=== PATIENT | female | born 1990 | race Caucasian/White ===

== ENCOUNTER 2018-12-15 16:04 | Outpatient (CLI) | payer MEDICAID, SELFPAY ==
--- NOTE | 2018-12-15 15:45 | DI.RAD_ITS ---
SYMPTOM/DIAGNOSIS: SENSATION, INABILITY TO FILL LUNGS, SOB, R06.02 PA AND LATERAL CHEST: There are no prior comparison exams. The cardiac and mediastinal contours have a normal appearance. The lungs are normally inflated and appear clear. Scoliosis is noted in the thoracolumbar spine. IMPRESSION: Scoliosis, otherwise negative.
== END 2018-12-15 16:24 ==
PROVIDERS: PCP Nurse Practitioner; Visit Provider Nurse Practitioner Adult Health
DX: R06.02 Shortness of breath (principal)
CPT/HCPCS: 71046

== ENCOUNTER 2019-01-13 11:07 | Outpatient (REF) | payer MEDICAID, SELFPAY ==
--- NOTE | 2019-01-13 09:20 | PAPFT_PTH ---
PATIENT: Marly Viveros LOC: [facility] U#:[id number] AGE/SX: 28/F ROOM: RE01/13/[address]: Anita Ghotra APRN : 1990 BED: DIS: 01/13/2019 SPEC #: [id number] RECD: 01/13/19 13:03 STATUS: LASHA MELO #: [id number] [place]: 01/13/19 09:[address]: Anita Ghotra DEPT: [facility] Cytology RECD BY: Janice Aparicio Tissues: 1 - CX/ENDOCX FOR PAP SMEARS Procedures: PAP THIN PREP/UVM Screening Comments: [id number] (CHLAMYDIA/GC)
[2019-01-14 13:59] LABS: Chlamydia Result Negative; GC Result Negative; Specimen Description SEE COMMENTS
== END 2019-01-13 11:27 ==
LOC: LBN 11:07
PROVIDERS: PCP Nurse Practitioner; Visit Provider Nurse Practitioner
DX: Z11.3 Encounter for screening for infections with a predominantly sexual mode of transmission (principal); Z12.4 Encounter for screening for malignant neoplasm of cervix
CPT/HCPCS: 87491; 87591; 88142

== ENCOUNTER 2020-05-06 04:14 | Outpatient (CLI) | payer MEDICAID, SELFPAY ==
--- NOTE | 2020-05-06 07:00 | DI.RAD_ITS ---
EXAM: XR KNEE RT 3V AP,LAT,CALLY CLINICAL HISTORY: r/o fx, patellar tenderness, s/p fall,M25.561, RT KNEE PAIN TECHNIQUE: COMPARISON: No exams were available for comparison FINDINGS: Three views were obtained. There is no evidence of a fracture or dislocation. No significant knee j oint effusion seen on the lateral view. IMPRESSION: RADIATION DOSE DELIVERED: Total DLP
== END 2020-05-06 04:34 ==
PROVIDERS: PCP Nurse Practitioner; Visit Provider Nurse Practitioner Family
DX: M25.561 Pain in right knee (principal)
CPT/HCPCS: 73562

== ENCOUNTER 2020-05-10 13:54 | Outpatient (CLI) | payer MEDICAID, SELFPAY ==
--- NOTE | 2020-05-10 10:30 | DI.RAD_ITS ---
EXAM: XR KNEE RT 1V CLINICAL HISTORY: RIGHT KNEE PAIN. TECHNIQUE: 2D digital imaging was performed. COMPARISON: CR XR KNEE RT 3V AP,LAT,CALLY from 05/06/2020 FINDINGS: BONES: No acute fracture is present. No bony destructive lesion is seen. JOINTS: The knee is normally aligned. No joint effusion is seen. SOFT TISSUE: Normal. IMPRESSION: Unremarkable radiographs of the right knee. DATA REPOSITORY: RADIATION DOSE DELIVERED:
== END 2020-05-10 14:14 ==
PROVIDERS: PCP Nurse Practitioner; Visit Provider Student in an Organized Health Care Education/Training Program
DX: M25.561 Pain in right knee (principal)
CPT/HCPCS: 73560

== ENCOUNTER 2021-04-05 04:14 | Outpatient (CLI) | payer MEDICAID, SELFPAY ==
[2021-04-05 09:13] LABS: HCT 36.2 % (36.0-46.0); HGB 11.1 g/dL (11.2-15.7); MCH 26.2 pg (27.0-33.0); MCHC 30.7 % (32.0-36.0); MCV 85.6 fL (80-95); MPV 9.7 fL (8.0-11.0); Platelet Count 365 10^3/uL (130-400); RBC 4.23 10^6/uL (3.93-5.22); RDW-SD 43.8 fL; WBC 5.97 10^3/uL (4.4-10.8)
[2021-04-05 11:29] LABS: ALT 26 U/L (14-59); AST 12 U/L (15-37); Albumin 3.6 g/dL (3.4-5.0); Alkaline Phosphatase 67 U/L (46-116); Anion Gap 8.7 mmol/L (3-11); BUN 18 mg/dL (7-18); Bilirubin, Total 0.2 mg/dL (0.2-1.0); CO2 27.3 mmol/L (21.0-32.0); Calcium 8.8 mg/dL (8.5-10.1); Chloride 106 mmol/L (98-107); Glucose 78 mg/dL (74-106); Potassium 4.2 mmol/L (3.5-5.1); Sodium 142 mmol/L (136-145); TSH (W/Ref FT4) 1.01 uIU/mL (0.36-3.74); Vitamin B12 241 pg/mL (193-986)
== END 2021-04-05 04:15 | disposition home or self-care (01) ==
LOC: LBO 04:14
PROVIDERS: PCP Nurse Practitioner; Visit Provider Nurse Practitioner
DX: I10 Essential (primary) hypertension (principal); R41.3 Other amnesia; F32.9 Major depressive disorder, single episode, unspecified; R41.840 Attention and concentration deficit
CPT/HCPCS: 36415; 80053; 85027; 82607; 84443

== ENCOUNTER 2021-10-03 12:50 | Outpatient (CLI) | payer MEDICAID, SELFPAY ==
--- NOTE | 2021-10-03 12:45 | RT.EKG_ITS ---
APPROVED REPORT Exam: Resting ECG Reason for Exam: Medication monitoring Patient Location: O HR:101 bpm ECG Measurements Heart Rate 101 AXIS ID 137 P 44 QRSd 61 QRS 23 QT 336 T 28 QTc 437 Conclusion Sinus tachycardia...rate> 99
== END 2021-10-03 12:51 | disposition home or self-care (01) ==
LOC: DI.KIM 12:52
PROVIDERS: PCP Nurse Practitioner; Visit Provider Nurse Practitioner
DX: Z51.81 Encounter for therapeutic drug level monitoring (principal); Z79.899 Other long term (current) drug therapy; R00.0 Tachycardia, unspecified; R94.31 Abnormal electrocardiogram [ECG] [EKG]
CPT/HCPCS: 93010

== ENCOUNTER 2022-04-06 13:06 | Outpatient (REF) | payer MEDICAID, SELFPAY ==
--- NOTE | 2022-04-06 10:00 | PAPFT_PTH ---
PATIENT: Marly Viveros LOC: [facility] U#:[id number] AGE/SX: 31/F ROOM: RE04/06/[address]: Donya Flores MD : 1990 BED: DIS: 04/06/2022 SPEC #: [id number] RECD: 04/06/22 14:07 STATUS: LASHA REQ #: [id number] [place]: 04/06/22 10:[address]: Donya Flores DEPT: [facility] Cytology RECD BY: Radha Holbrook ENTERED: 04/06/22 14:08 SP TYPE: PAPFT OTHR DR: Anita Ghotra APRN Tissues: 1 - CX/ENDOCX FOR PAP SMEARS Procedures: PAP THIN PREP/UVM Screening Comments: [id number]
== END 2022-04-06 13:07 | disposition home or self-care (01) ==
LOC: LBN 13:06
PROVIDERS: PCP Nurse Practitioner; Visit Provider Obstetrics & Gynecology
DX: Z12.4 Encounter for screening for malignant neoplasm of cervix (principal)
CPT/HCPCS: 88142

== ENCOUNTER 2023-03-20 04:03 | Outpatient (CLI) | payer OTHER, SELFPAY ==
[2023-03-20 11:57] LABS: Abs Immature Grans 0.06 10^3/uL (0.0-0.06); Absolute Eosinophil Count 0.13 10^3/uL (0.0-0.7); Absolute Lymphocyte Count 2.22 10^3/uL (1.2-3.4); Absolute Monocyte Count 0.57 10^3/uL (0.1-0.8); Absolute Neutrophil Count 8.14 10^3/uL (1.2-6.7); Basophils % 0.4; Eosinophils % 1.2; HCT 36.4 % (36.0-46.0); HGB 11.7 g/dL (11.2-15.7); Immature Grans % 0.5; Lymphocytes % 19.9; MCH 27.1 pg (27.0-33.0); MCHC 32.1 % (32.0-36.0); MCV 85 fL (80-95); MPV 9.7 fL (8.0-11.0); Monocytes % 5.1; Neutrophils % 72.9; Platelet Count 357 10^3/uL (130-400); RBC 4.31 10^6/uL (3.93-5.22); RDW 13.8 % (11.7-14.6); RDW-SD 42.8 fL; WBC 11.17 10^3/uL (4.4-10.8)
[2023-03-20 12:00] LABS: Absolute Basophil Count 0.04 10^3/uL (0.0-0.2)
[2023-03-21 11:25] LABS: HIV-1/2 Ag & Ab Screen Negative (Negative)
[2023-03-21 11:32] LABS: Hepatitis C Ab w Rflx HCV PCR Negative (Negative)
[2023-03-21 11:46] LABS: Varicella IgG Antibody Positive (See Note)
[2023-03-21 11:51] LABS: Rubella IgG Ab (UVM) Positive (See Note)
[2023-03-21 12:02] LABS: Hepatitis B Surface Ag Negative (Negative)
[2023-03-22 16:01] LABS: Syphilis IgG w/Reflex Nonreactive (Nonreactive)
[2023-03-25 14:43] LABS: Specimen WB Whole Blood
[2023-03-30 00:26] LABS: Result Summary NEGATIVE; Specimen WB Whole Blood
== END 2023-03-20 04:04 | disposition home or self-care (01) ==
LOC: LBO 04:03
PROVIDERS: PCP Nurse Practitioner; Visit Provider Advanced Practice Midwife
DX: Z34.91 Encounter for supervision of normal pregnancy, unspecified, first trimester (principal); Z3A.11 11 weeks gestation of pregnancy; Z36.89 Encounter for other specified antenatal screening
CPT/HCPCS: 36415; 81220; 81222; 81329; 86787; 86803; 86850; 86900; 86901; 87340; 87389; 85025; 86762; 86780

== ENCOUNTER 2023-03-20 11:41 | Outpatient (REF) | payer OTHER, SELFPAY ==
[2023-03-20 12:39] LABS: *AMPHETAMINES SCREEN URINE Negative (Negative); *BARBITURATES SCREEN URINE Negative (Negative); *BENZODIAZEPINES SCREEN URINE Negative (Negative); Cannabinoids THC Negative (Negative); Cocaine Screen,Urine Negative (Negative); METHADONE URINE SCREEN Negative (Negative); OPIATES URINE SCREEN Negative (Negative)
[2023-03-20 12:46] LABS: Tricyclic Antidepressants Negative (Negative)
[2023-03-21 13:18] LABS: Chlamydia Result Negative (Negative); GC Result Negative (Negative)
[2023-03-26 10:44] LABS: Buprenorphine Negative ng/mL (Cutoff: 5.0); Norbuprenorphine Negative ng/mL (Cutoff: 2.5)
== END 2023-03-20 11:42 | disposition home or self-care (01) ==
LOC: LBN 11:41
PROVIDERS: PCP Nurse Practitioner; Visit Provider Advanced Practice Midwife
DX: Z34.91 Encounter for supervision of normal pregnancy, unspecified, first trimester (principal); Z3A.11 11 weeks gestation of pregnancy; Z11.3 Encounter for screening for infections with a predominantly sexual mode of transmission
CPT/HCPCS: 80307; 80348; 87491; 87591; 87086

== ENCOUNTER 2023-04-22 08:36 | Outpatient (CLI) | payer OTHER, SELFPAY ==
--- NOTE | 2023-04-22 08:30 | RT.EKG_ITS ---
APPROVED REPORT Exam: Resting ECG Reason for Exam: on [facility] Patient Location: O HR:94 bpm ECG Measurements Heart Rate 94 AXIS [place] 144 P 30 QRSd 79 QRS 13 QT 358 T 31 QTc 448 Conclusion Sinus rhythm...normal P axis, V-rate 50- 99 Low voltage, precordial leads...precordial leads <1.0mV Baseline wander in lead(s) II,III,aVF Otherwise normal ECG
== END 2023-04-22 08:37 | disposition home or self-care (01) ==
LOC: DI.KIM 08:38
PROVIDERS: PCP Nurse Practitioner; Visit Provider Nurse Practitioner
DX: Z51.81 Encounter for therapeutic drug level monitoring (principal)
CPT/HCPCS: 93010

== ENCOUNTER 2023-06-18 10:37 | Outpatient (REF) | payer BC, SELFPAY | END 2023-06-18 10:38 | disposition home or self-care (01) | LOC: LBN 10:37 | PROVIDERS: PCP Nurse Practitioner; Visit Provider Advanced Practice Midwife | DX: N89.8 Other specified noninflammatory disorders of vagina (principal); O26.892 Other specified pregnancy related conditions, second trimester | CPT/HCPCS: 87480; 87510; 87660 ==

== ENCOUNTER 2023-07-16 02:35 | Outpatient (CLI) | payer BC, SELFPAY ==
[2023-07-16 10:37] LABS: HCT 31.9 % (36.0-46.0); HGB 10.2 g/dL (11.2-15.7); MCV 84 fL (80-95); MPV 9.6 fL (8.0-11.0); Platelet Count 364 10^3/uL (130-400); RBC 3.78 10^6/uL (3.93-5.22); RDW 13.2 % (11.7-14.6); RDW-SD 40.9 fL; WBC 11.78 10^3/uL (4.4-10.8)
[2023-07-16 11:11] LABS: Glucose,1 Hr (Glucola) 107 mg/dL (80-140)
== END 2023-07-16 02:36 | disposition home or self-care (01) ==
LOC: LBO 02:35
PROVIDERS: Advanced Practice Midwife; PCP Nurse Practitioner; Visit Provider Advanced Practice Midwife
DX: Z34.93 Encounter for supervision of normal pregnancy, unspecified, third trimester (principal); Z3A.28 28 weeks gestation of pregnancy
CPT/HCPCS: 36415; 82950; 85027

== ENCOUNTER 2023-08-16 02:26 | Outpatient (CLI) | payer BC, SELFPAY ==
[2023-08-16 12:52] LABS: HCT 32.2 % (36.0-46.0); HGB 10.1 g/dL (11.2-15.7); MCH 26.4 pg (27.0-33.0); MCHC 31.4 % (32.0-36.0); MCV 84 fL (80-95); MPV 9.7 fL (8.0-11.0); Platelet Count 358 10^3/uL (130-400); RBC 3.83 10^6/uL (3.93-5.22); RDW 14.5 % (11.7-14.6); RDW-SD 43.8 fL; WBC 11.42 10^3/uL (4.4-10.8)
== END 2023-08-16 02:27 | disposition home or self-care (01) ==
LOC: LBO 02:26
PROVIDERS: PCP Nurse Practitioner; Visit Provider Advanced Practice Midwife
DX: Z34.93 Encounter for supervision of normal pregnancy, unspecified, third trimester (principal)
CPT/HCPCS: 36415; 85027

== ENCOUNTER 2023-09-11 16:01 | Outpatient (REF) | payer BC, SELFPAY | END 2023-09-11 16:02 | disposition home or self-care (01) | LOC: LBN 16:01 | PROVIDERS: PCP Nurse Practitioner; Visit Provider Advanced Practice Midwife | DX: Z34.93 Encounter for supervision of normal pregnancy, unspecified, third trimester (principal); Z36.85 Encounter for antenatal screening for Streptococcus B; Z3A.36 36 weeks gestation of pregnancy | CPT/HCPCS: 87081 ==

== ENCOUNTER 2023-09-30 10:56 | Inpatient (IN) | payer BC, SELFPAY ==
[2023-09-30] VITALS (11 sets, daily range): BP systolic 104–117; BP diastolic 62–70; PULSE 76–96; RESP 16; TEMP 36.8–37.1
[2023-09-30] MEDS: Oxytocin 10 UNITS/ML VIAL IM (11:25)
--- NOTE | 2023-09-30 11:59 | W.PM.OBHPL1 ---
Date of service: 09/30/23 Time of Service: 11:59 Assessment and Plan Assessment and plan (1) Normal labor: Status: Acute Assessment and plan: 1. Admit and prepare for imminent , low risk for Shoulder dystocia, pre-eclampsia or PPH 2. Plan to draw admission labs immediately PP 3. Expect NVD, will give pitocin 10 units IM after delivery of baby for active management of second stage OB-HPI Labor/Delivery History of Present Illness Reason for Visit: Labor Chief Complaint: Uterine Contractions. JOSSY Calculator Estimated Delivery Date Method WG Current Estimate 10/07/23 Ultrasound #1 Other Estimates 10/01/23 LMP (Certain) Delivery Date-Baby A 09/30/23 39w 0d History of Present Expected Delivery Route/Plan - CNM FOB/ - Akash Viveros (1st child) BG Hopes to labor in the tub GBS negative Specific Issues/Plan 1. Hx symphysis separation at end of 2nd preg, has met w/PT recently- symptoms improved. 2. Depression/anxiety & ADHD, takes Wellbutrin & Vyvanse, therapist thru [facility]-- yearly EKG with PCP 3. SMA neg, CF neg, declines cfDNA screen 4. Anemia - symptomatic , Hgb 10.2, started iron tablet daily @ 30 wks Assessment: History Reviewed & Current Review of Systems All systems reviewed & are unremarkable except as noted in HPI and below Genitourinary Comments: urge to push on arrival, bulging amniotic membranes Musculoskeletal Comments: regular uterine contractions that began at 0400 today [facility] All Active Problems (Updated 09/30/23 @ 12:07 by Mary Oliveira CNM) Normal labor (Acute) Anemia affecting (Acute) Vaginal discharge during (Acute) (Acute) Symphysis pubis disruption (Acute) History of hyperemesis gravidarum (Acute) Attention deficit hyperactivity disorder (ADHD) (Acute) Anemia (Chronic) Memory deficit (Acute) Concentration deficit (Acute) Urinary incontinence (Acute) TMJ (temporomandibular joint disorder) (Acute) Patellar tendinitis of right knee (Acute ~01/2020) Scoliosis (Chronic) Depression (Chronic) Anxiety (Chronic) Medical History (Updated 09/30/23 @ 12:07 by Mary Oliveira CNM) First trimester Surgical History Dilation and curettage Family History (Updated 04/06/22 @ 09:11 by Katie Akhtar RN) Paternal Grandfather Alcohol abuse Maternal Grandfather Alcohol abuse Sister Anxiety Depression Christoph-Danlos, hypermobile type Paternal Grandmother Cancer Maternal Grandmother Cervical cancer Cancer ovarian Mother Depression Hypertension Maternal Aunt Depression Christoph-Danlos, hypermobile type Maternal Cousin Depression Christoph-Danlos, hypermobile type Other Mental disorder Social History (Updated 01/18/21 @ 09:30 by Yuliya Glynn RN) Smoking/Tobacco Use Status: Current-Occasional (Juul, Former use of mini cigars occasionally) Tobacco Type: e-cigarettes Tobacco: How many years used: 2 Quit status: not considering quitting Second Hand Exposure: No Smoking risk assessment performed?: Yes Alcohol Intake: current Alcohol Intake frequency: a few times a month Drug use: Never Substance use type: does not use Adopted: No Caregiver/Support person: No Foster care: No Household members: significant other and children Housing: apartment Number of Children: 2 number of grandchildren: 0 Communication Needs: Corrective Lenses Education Level: vocational Do you need help understanding health information?: Never 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, [employer]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 Pets and animals: Yes Pets and animals: other Details: Mouse Sexually active: Yes Do you think of yourself as: straight/heterosexual Current gender identity: female What is your relationship status?: living with partner How often do you talk on the phone with friends or family?: once per week How often do you get together with friends or relatives?: twice per week Do you belong to any clubs or organized social groups?: no Panel score (0-1 are the most socially isolated patients): 2 What type of physical activity do you participate in: regular exercise and other Details: very active with her 2 children, Stone 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 Duration: 45-60 minutes/day Frequency: 1-2 times per week Colette/Mandaeism: Adventism Special colette needs: No Seatbelt use: always Helmet use: Yes Helmet use: always Drive intox or ride w/intox long haul truck driver: No Water heater temp set <120 deg: Yes Working smoke detector in home: Yes Fire extinguisher in home: Yes Carbon monox detector in home: Yes Do you feel safe at home: Yes Do you feel safe in your relationship?: Yes Victim of physical abuse: No Victim of emotional abuse: No Victim of sexual abuse: No History History 5 Para 2 Hx # Term Pregnancies 2 Multiple births 0 Hx # Pregnancies 0 Ectopic pregnancies 0 AB induced 0 Hx Number of Living Children 2 AB spontaneous 2 Past Pregnancies Del. Date GA/Weeks # Preg Succ Route Wgt Sex Labor Lgth Anesthesia Location Prov Complic 05/10/11 13 No Female 05/15/12 6 No 05/27/13 39 No Yes vaginal 7 lb 1 oz Female 9 hrs [facility] CNM's 11/19/15 39 No Yes vaginal 7 lb 8 oz Male 3 hrs CNM's at Delivery Date: 05/10/11 Last Updated by: Malka Duran D&C for 11-12 wk demise, trisomy 18 Delivery Date: 05/15/12 Last Updated by: Malka Duran SAB Delivery Date: 05/27/13 Last Updated by: Malka Duran Nml but not a great experience, felt unheard, [facility] Delivery Date: 11/19/15 Last Updated by: Malka Duran Very good experience, [facility] Allergies and Home Medications Allergies Allergy/AdvReac Type Severity Reaction Status Date / Time Sulfa (Sulfonamide Allergy Mild Hives Verified 09/30/23 12:07 Antibiotics) acetaminophen [From Vicodin] AdvReac Mild vomiting Verified 09/30/23 12:07 hydrocodone bitartrate AdvReac Mild vomiting Verified 09/30/23 12:07 [From Vicodin] Home Medications Medication Instructions Recorded Confirmed Type cholecalciferol (vitamin D3) 25 1 tab PO DAILY 10/29/17 09/25/23 History mcg (1,000 unit) tablet vitamin b12 PO 07/11/21 09/25/23 History loratadine 10 mg tablet (Claritin) 10 mg PO DAILY 10/03/21 09/25/23 History vitamin #56-iron 35 mg 1 cap PO DAILY 06/14/22 09/25/23 History and 5 mg-folic acid 1 mg-dha capsule bupropion HCl 300 mg 24 hr tablet, 300 mg PO QAM #90 tabs 11/27/22 09/25/23 Rx extended release (Wellbutrin XL) ondansetron HCl 4 mg tablet 4 mg PO Q6H #30 tabs 06/18/23 09/25/23 Rx famotidine 20 mg tablet (Pepcid) 20 mg PO BID 07/16/23 09/25/23 History lisdexamfetamine 40 mg capsule 40 mg PO DAILY #28 caps 07/24/23 09/25/23 Rx lisdexamfetamine 40 mg capsule 40 mg PO DAILY #28 caps 07/24/23 09/25/23 Rx lisdexamfetamine 40 mg capsule 40 mg PO DAILY #28 caps 07/24/23 09/25/23 Rx (Vyvanse) ferrous sulfate 325 mg (65 mg 325 mg PO DAILY 07/31/23 09/25/23 History iron) tablet Exam Physical Exam Vital signs: Pulse BP 76 105/67 09/30/23 11:44 09/30/23 11:44 Vital Signs Reviewed: Yes Constitutional Constitutional: mild distress Detailed Labor and Delivery Exam Dilation: 10 Effacement (%): 100 station: +2 Position: ALYSA Kilpatrick Score: Cervical Points Exam 0 1 2 3 Dilation Closed 1-2cm 3-4 cm 5-6cm Effacement 0-30% 40-50% 60-70% 80% Consistency Firm Medium Soft Station -3 -2 -1,0 +1,+2 Position Posterior Mid Anterior Contraction Frequency(min): 2 Contraction Duration(sec): 60 Contraction Intensity: Strong Comments: bulging membranes on arrival Fetus A Heart Rate Baseline: 120 Monitor Accelerations: Absent Monitor Decelerations: Variable (X1) Variability: Minimal (1-5 BPM) (only 10 minutes of tracing before delivery due to second stage on arrival) Presentation: Cephalic Est. Weight: 7 lb HEENT Exam HEENT Exam: Normal (atraumatic, face symmetrical, wears glasses) Neck Exam Neck Exam: Normal (visual exam) Chest/Brest/Axilla Exam Chest Exam: Normal (regular HR ) Breast Exam Breast Exam: Not Done Respiratory Exam Respiratory Exam: Normal Cardiovascular Exam Cardiovascular Exam: Normal Abdominal Exam Abdominal Exam: Normal (gravid, size equals dates) Rectal Exam Rectal Exam: Not Done Exam Exam: Normal (for second stage labor) Extremities Exam Extremities Exam: Normal Back/Spine/Pelvis Exam Back Exam: Not Done Pelvis Adequate: Yes Skin Exam Skin Exam: Normal Neurological Exam Neurological Exam: Normal Psychiatric Exam Psychiatric Exam: Normal Results Results Group Beta Strep: Negative Blood Type: A+ Rubella Status: Immune Varicella Immunity: Immune Risk Assessment Risk for Shoulder Dystocia Historical/Initial OB: NEGATIVE FOR: Pelvic Abnormality, Pre- BMI>30, Previous Shoulder Dystocia or Previous Macrosomia Delivery Plan @ 40 wks: NVD Risk for Pre-Eclampsia Date Initiated/Initials: not indicated. JK Yes, if one or more: NEGATIVE FOR: Hx Pre-E/Gest HTN, Chronic HTN, Multiple Gestation, Pre-gestational DM, Renal Disease, Systemic Lupus or APA Syndrome Yes, if 2 or more: NEGATIVE FOR: Nulliparity, Age>= 35 yrs, >10yr btwn pregnancies, BMI>30, ethinicty, Mother/Sister w/ Pre-E or Previous IUGR Risk for Post- Hemorrhage Initial: NEGATIVE FOR: Multiple Gestation, Previous PPH, Known Clotting Deficiency, Grand Multiparity or Anticoagulation Counseled re: Active Management: Yes Date/Initials: 09/30/23 Risks Reviewed Risks Reviewed Upon Admission: Yes
[2023-09-30 12:05] LABS: HCT 35.5 % (36.0-46.0); HGB 11.3 g/dL (11.2-15.7); MCH 26.6 pg (27.0-33.0); MCHC 31.8 % (32.0-36.0); MCV 84 fL (80-95); MPV 10.2 fL (8.0-11.0); Platelet Count 282 10^3/uL (130-400); RBC 4.25 10^6/uL (3.93-5.22); RDW 16.2 % (11.7-14.6); RDW-SD 49.5 fL
--- NOTE | 2023-09-30 12:09 | OBVDS_ITS ---
Date of service: 09/30/23 Time of Service: 12:09 OB Labor/ Delivery Information Baby A Delivery Delivery Method: Spontaneaous Presentation: Cephalic Cephalic Position: Vertex Vertex Position: Left Occipital Anterior Cord Description-Baby A: 3 Vessels and Clamped/Cut (after 4 minutes of delayed cord clamping) Amniotic Fluid: Meconium (thin meconium, born en-caul) Estimated Blood Loss: 150 Delivery Outcome: Liveborn Infant Complications: right arm below elbow absent, not formed Infant Transferred: Remains with Mother Note: Josh arrived at approximately 1110. She had begun leticia at 0400 and on arrival was experiencing rectal pressure. Denied LOF or bleeding. FHR 120's with contractions every 2 minutes and strong to palpation. VE 10/100/+2, bulging membranes noted after first push, appeared to have meconium staining. As FHR was within normal ranges and baby was about to deliver I chose to await to notify pediatric provider of meconium. A live female was delivered ALYSA over intact perineum, encaul, at 1118. Baby was brought to mother's abdomen for skin to skin and drying. I showed parents after a couple of minutes that it appears that the right arm, below elbow was absent and no hand had developed on that arm. Their response was appropriate with concern but happy that baby is otherwise doing well. Cord ceased pulsing at 4 minutes of life and was double clamped and cut by FOB. Cord bloods obtained. scores 9 and 9. Nicole agreed to 10 units Pitocin IM for active management of second stage. Placenta delivered at 1130, with maternal pushing effort, intact. Fundus firmed to U-1 with massage. QBL 150cc. Spnge and instrument count correct. I will send placenta to pathology and Josh want cytogenetic testing done. Pediatric provider will attend baby in the next couple of hours as she is doing well. Positive bonding noted. Expect normal PP course. Nicole plans to breast feed her baby. Providers Nurse Endless Track Vehicle Mechanic: Mary Oliveira Nurse: Soto Tejeda Labor/Delivery Information Number of Babies in Womb: 1 Group Beta Strep: Negative Rubella Status: Immune Blood Type: A+ Varicella Immunity: Immune Shoulder Dystocia: No Stages of Labor Onset of Labor Date: 09/30/23 Onset of Labor Time: 04:00 Complete Dilatation Date: 09/30/23 Complete Dilatation Time: 11:10 Labor - Stage 1 Duration: 7 hours and 10 minutes ROM Baby A: 09/30/23 ROM Baby A: 11:18 Infant Delivery Date-Baby A: 09/30/23 Delivery Time-Baby A: 11:18 Labor Stage 2 Duration: 8 minutes Placenta Delivery Date-Baby A: 09/30/23 Placenta Delivery Time-Baby A: 11:30 Labor-Stage 3 Duration: 12 minutes Total Length of Labor-Baby A: 7 hours and 18 minutes Placenta Status: Delivered Baby A Infant Gender: Female Gestational Status: Early Term (37-38.6 wks) Score-1 Minute Interval(Baby A) Heart Rate-1 minute: 100 BPM or Greater Respiratory Effort- 1 minute: Spontaneous/Strong Cry Muscle Tone-1 minute: Active Movement Reflex Response-1 minute: Prompt Response Color-1 minute: Bluish Hands or Feet Total Score-1 minute: 9 Score-5 Minute Interval(Baby A) Heart Rate- 5 minute: 100 BPM or Greater Respiratory Effort-5 minute: Spontaneous/Strong Cry Muscle Tone-5 minute: Active Movement Reflex Response-5 minute: Prompt Response Color-5 minute: Bluish Hands or Feet Total Score- 5 minute: 9
[2023-09-30] MEDS: Ibuprofen 600 MG TAB PO ×2 (16:17→21:56)
[2023-09-30] MEDS: Acetaminophen 325 MG TAB 650 MG PO ×2 (16:17→19:29)
[2023-10-01] MEDS: Ibuprofen 600 MG TAB PO ×2 (05:22→12:59)
[2023-10-01] MEDS: Acetaminophen 325 MG TAB 650 MG PO ×2 (05:22→12:58)
[2023-10-01 08:00] VITALS: BP 99/69; PULSE 86; RESP 12; TEMP 36.9
[2023-10-01] MEDS: buPROPion-XL 150 MG TABCR 300 MG PO (08:15)
[2023-10-01] MEDS: Docusate Sodium 100 MG CAP PO (08:15)
--- NOTE | 2023-10-01 09:20 | OBPPV_ITS ---
Date of service: 10/01/23 Time of Service: 09:20 Assessment and Plan Assessment and plan (1) care following vaginal delivery: Status: Acute Assessment and plan: 1. Normal PP course to date. Denies questions or concerns. KIM (2) Lactating mother: Status: Acute Assessment and plan: 1. Breast feeding is well established and patient has a good knowledge of breast feeding and self help measures. Will work with LC today for latch on right side that is slightly tender. 2. Will follow up with pediatrics as scheduled. KIM Subjective Subjective Interval history: Nicole is doing well. Meeting her own ADL's. Breast feeding is going well but she does have some difficulty with latch on her right side. Will work with LC today. 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 Positive family bonding noted. Nicole and Akash feel good about the plan to manage Meagan Kessler's right lower arm reduction. KIM baby status: Doing well, Nursing well and Rooming in [place] feeding status: Exclusively breast feeding Exam Physical Exam Vital signs: Temp Pulse Resp BP 98.4 F 86 12 99/69 L 10/01/23 08:00 10/01/23 08:00 10/01/23 08:00 10/01/23 08:00 Constitutional Constitutional: no acute distress, average body habitus and cooperative HEENT Exam HEENT Exam: Normal Neck Exam Neck Exam: Normal (normal visual inspection) Respiratory Exam Respiratory Exam: Normal Cardiovascular Exam Cardiovascular Exam: Normal Abdominal Exam Abdomen: Other (normal exam) Fundal Exam Fundus: Below Umbilicus and Firm Comment: small lochia noted. Rectal Exam Rectal Exam: Not Done Exam Perineum: Intact and Normal Extremities Exam Extremity Exam: Normal (denies calf tenderness) and Full ROM Back/Spine/Pelvis Exam Back Exam: Normal Skin Exam Skin Exam: Normal Neurological Exam Neurological Exam: Normal Psychiatric Exam Psychiatric Exam: Normal Results Hemoglobin/Hematocrit: Hgb 11.3 g/dL (11.2-15.7) 09/30/23 11:55 Hct 35.5 % (36.0-46.0) L 09/30/23 11:55 Abnormal Lab Findings: Abnormal Labs 09/30/23 11:55 WBC 17.30 H Hct 35.5 L MCH 26.6 L MCHC 31.8 L RDW 16.2 H
--- NOTE | 2023-10-01 09:29 | DSE_ITS ---
Date of service: 10/01/23 Time of Service: 09:32 DS: Diagnosis Discharge Diagnosis (1) care following vaginal delivery: Status: Acute Asessment and Plan: 1. Normal PP course, performing own ADL's. Denies pain or concerns. 2. Plans NFP, she has a counselor that is well versed in this method and is aware of the challenges of this method while breast feeding. 3. Will RTO in 2 and 6 weeks PP. KH (2) Lactating mother: Status: Acute Asessment and Plan: 1. Breast feeding is well established and Nicole has a good knowledge of breast feeding and self help measures. 2. Will follow up with pediatrics as scheduled and call CNM as needed. Discharge Plan Disposition Patient Disposition: Home Condition: Good Discharge Details Reason For Visit: Labor Admit Date/Time: 09/30/23 10:56 Admit Provider: Mary Oliveira Attending Provider: Mary Oliveira Primary Care Provider: Anita Ghotra Hospital Course Hospital Course: Nicole arrived on 09/30/23 at approximately 11 am in active labor, 10cm and with urge to push after starting her labor at 4 am on 09/30/23. She had NVD over intact perineum and delivered a live female. It was noted at time of delivery that the lower portion of the baby's right arm was missing. They are dealing well wtih this deformity and have a good plan for follow up with their pediatric team and [facility]ology, genetics and ortho. Nicole is doing well PP and breast feeding is well established. 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 They plan NFP and she also has a provider for that process. Will RTO 2 and 6 weeks PP or prn. Home Meds and New Rx's Prescriptions: Continued PNV #[id number] acid-dha 35 mg iron-5 mg iron-1 mg capsule 1 cap PO DAILY ferrous sulfate 325 mg (65 mg iron) tablet 325 mg PO DAILY vitamin b12 1,000 mg PO loratadine [Claritin] 10 mg tablet 10 mg PO DAILY bupropion HCl [Wellbutrin XL] 300 mg tablet extended release 24 hr 300 mg PO QAM Qty: 90 3RF lisdexamfetamine 40 mg capsule 40 mg PO DAILY MDD 40mg Qty: 28 0RF cholecalciferol (vitamin D3) 1,000 UNITS tablet 1 tab PO DAILY Discontinued ondansetron HCl 4 mg tablet 4 mg PO Q6H Qty: 30 4RF lisdexamfetamine [Vyvanse] 40 mg capsule 40 mg PO DAILY MDD 40mg Qty: 28 0RF lisdexamfetamine 40 mg capsule 40 mg PO DAILY MDD 40mg Qty: 28 0RF famotidine [Pepcid] 20 mg tablet 20 mg PO BID Discharge Instructions Instructions: Depression (GEN) Stand Alone Forms: BC Instructions, BC Post Vaginal Deliver Activity:: Activity as Tolerated Equipment/Supplies:: No Equipment Needed Diet:: As Tolerated Discharge Orders Discharge Orders: Discharge Order (Routine); Ordered 10/01/23 Ordered By: Mary Oliveira OB:DS Summary Summary Vaginal Delivery Method: Spontaneaous Episiotomy Description: None Laceration Description: None Laceration Extension: N/A Contraception Discussed Contraception Discussed: Yes Contraceptive Plan: Not planning to use (NFP), Gender-Baby A: Female (Aniya Kessler) weight: 6 lb 5 oz Status at Discharge Functional status at discharge: independent ambulation Overall status at discharge: patient is back to baseline Mental Status: mental status grossly normal Speech and Movement: speech and movement normal Mood: congruent mood Affect: normal affect Time Spent with Patient providing and/or coordinating discharge services: Less than 30 minutes Quality:SDOH Health Related Social Needs: No Data to Display Exam Physical Exam Vital signs: Temp Pulse Resp BP 98.4 F 86 12 99/69 L 10/01/23 08:00 10/01/23 08:00 10/01/23 08:00 10/01/23 08:00 Vital Signs Reviewed: Yes Constitutional Constitutional: no acute distress, average body habitus and cooperative HEENT Exam HEENT Exam: Normal Neck Exam Neck Exam: Normal (normal visual inspection) Respiratory Exam Respiratory Exam: Normal Cardiovascular Exam Cardiovascular Exam: Normal Abdominal Exam Abdomen: Other (normal exam) Fundal Exam Fundus: Below Umbilicus and Firm Comment: small lochia noted. KH Rectal Exam Rectal Exam: Not Done Exam Perineum: Intact and Normal Extremities Exam Extremity Exam: Normal (denies calf tenderness) and Full ROM Back/Spine/Pelvis Exam Back Exam: Normal Skin Exam Skin Exam: Normal Neurological Exam Neurological Exam: Normal Psychiatric Exam Psychiatric Exam: Normal PFSH All Active Problems Lactating mother (Acute) care following vaginal delivery (Acute) (Acute) Symphysis pubis disruption (Acute) Attention deficit hyperactivity disorder (ADHD) (Acute) Anemia (Chronic) Memory deficit (Acute) Concentration deficit (Acute) Urinary incontinence (Acute) TMJ (temporomandibular joint disorder) (Acute) Patellar tendinitis of right knee (Acute ~01/2020) Scoliosis (Chronic) Depression (Chronic) Anxiety (Chronic) Medical History History of hyperemesis gravidarum Vaginal discharge during Anemia affecting Normal labor First trimester Surgical History Dilation and curettage Family History Paternal Grandfather Alcohol abuse Maternal Grandfather Alcohol abuse Sister Anxiety Depression Christoph-Danlos, hypermobile type Paternal Grandmother Cancer Maternal Grandmother Cervical cancer Cancer ovarian Mother Depression Hypertension Maternal Aunt Depression Christoph-Danlos, hypermobile type Maternal Cousin Depression Christoph-Danlos, hypermobile type Other Mental disorder Social History Smoking/Tobacco Use Status: Current-Occasional (Juul, Former use of mini cigars occasionally) Tobacco Type: e-cigarettes Tobacco: How many years used: 2 Quit status: not considering quitting Second Hand Exposure: No Smoking risk assessment performed?: Yes Alcohol Intake: current Alcohol Intake frequency: a few times a month Drug use: Never Substance use type: does not use Adopted: No Caregiver/Support person: No Foster care: No Household members: significant other and children Housing: apartment Number of Children: 2 number of grandchildren: 0 Communication Needs: Corrective Lenses Education Level: vocational Do you need help understanding health information?: Never 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[employer], [employer] Pets and animals: Yes Pets and animals: other Details: Mouse Sexually active: Yes Do you think of yourself as: straight/heterosexual Current gender identity: female What is your relationship status?: living with partner How often do you talk on the phone with friends or family?: once per week How often do you get together with friends or relatives?: twice per week Do you belong to any clubs or organized social groups?: no Panel score (0-1 are the most socially isolated patients): 2 What type of physical activity do you participate in: regular exercise and other Details: very active with her 2 children, Stone 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 Duration: 45-60 minutes/day Frequency: 1-2 times per week Colette/Congregation: Muslim Special colette needs: No Seatbelt use: always Helmet use: Yes Helmet use: always Drive intox or ride w/intox rolloff truck driver: No Water heater temp set <120 deg: Yes Working smoke detector in home: Yes Fire extinguisher in home: Yes Carbon monox detector in home: Yes Do you feel safe at home: Yes Do you feel safe in your relationship?: Yes Victim of physical abuse: No Victim of emotional abuse: No Victim of sexual abuse: No History History 5 Para 2 Hx # Term Pregnancies 2 Multiple births 0 Hx # Pregnancies 0 Ectopic pregnancies 0 AB induced 0 Hx Number of Living Children 2 AB spontaneous 2 Past Pregnancies Del. Date GA/Weeks # Preg Succ Route Wgt Sex Labor Lgth Anesth esia Location [facility] 05/10/11 13 No Female 05/15/12 6 No 05/27/13 39 No Yes vaginal 7 lb 1 oz Female 9 hrs [facility] [place] CNM's 11/19/15 39 No Yes vaginal 7 lb 8 oz Male 3 hrs CNM's at [facility] Delivery Date: 05/10/11 Last Updated by: Malka Duran D&C for 11-12 wk demise, trisomy 18 Delivery Date: 05/15/12 Last Updated by: Malka Duran SAB Delivery Date: 05/27/13 Last Updated by: Malka Duran Nml but not a great experience, felt unheard, [place] Delivery Date: 11/19/15 Last Updated by: [facility] Vitals/I&O Vitals and I&O: Vital Signs Temperature 98.4 F 10/01/23 08:00 Temperature Source Oral 10/01/23 08:00 Pulse 86 10/01/23 08:00 Pulse Rhythm Regular 10/01/23 08:00 Respiratory Rate 12 10/01/23 08:00 Respiratory Depth Normal 09/30/23 19:48 Blood Pressure 99/69 L 10/01/23 08:00 Blood Pressure Mean 79 10/01/23 08:00 Pain Level 1 10/01/23 08:00 Intake & Output 09/30/23 09/30/23 10/01/23 11:59 23:59 11:59 Output Total 850 / 850 300 / 300 Balance -850 / -850 -300 / -300 Weight 183 lb Output: Urine 850 / 850 300 / 300 Other: Urine Color Yellow Urine Appearance Clear Urine Odor None Voiding Methods Toilet Data Completed and Pending Labs on day of discharge: Labs from last 24 hours 09/30/23 11:55 WBC 17.30 H RBC 4.25 Hgb 11.3 Hct 35.5 L MCV 84 MCH 26.6 L MCHC 31.8 L RDW 16.2 H Plt Count 282 MPV 10.2 Patient ABO/Rh A Positive Antibody Screen NEGATIVE
[2023-10-01] MEDS: Hamamelis Leaf/Glycerin 100 EACH BOX PR (12:56)
== END 2023-10-01 13:32 | disposition home or self-care (01) | DRG 806 ==
LOC: BCD 11:24 → OBS 11:24
PROVIDERS: Admitting Provider Advanced Practice Midwife; PCP Nurse Practitioner; Visit Provider Advanced Practice Midwife
DX: O99.02 Anemia complicating childbirth (principal); O71.6 Obstetric damage to pelvic joints and ligaments; Z37.0 Single live birth; Z3A.39 39 weeks gestation of pregnancy; Z79.899 Other long term (current) drug therapy; O77.0 Labor and delivery complicated by meconium in amniotic fluid; D64.9 Anemia, unspecified; O99.344 Other mental disorders complicating childbirth; F41.8 Other specified anxiety disorders; F90.9 Attention-deficit hyperactivity disorder, unspecified type
CPT/HCPCS: 36415; 85027; 86850; 86900; 86901; J2590

== ENCOUNTER 2025-04-09 03:31 | Outpatient (CLI) | payer BC, SELFPAY ==
[2025-04-09 09:31] LABS: Anion Gap 3.5 mmol/L (3-11); BUN 10 mg/dL (7-18); CO2 31.5 mmol/L (21.0-32.0); Calcium 8.9 mg/dL (8.5-10.1); Chloride 106 mmol/L (98-107); Estimated GFR 100.33 (mL/min/1.73m2); Glucose 87 mg/dL (74-106); Potassium 4.0 mmol/L (3.5-5.1); Sodium 141 mmol/L (136-145)
== END 2025-04-09 03:32 | disposition home or self-care (01) ==
DX: D64.9 Anemia, unspecified (principal); Z83.3 Family history of diabetes mellitus
CPT/HCPCS: 36415; 80048

== ENCOUNTER 2025-06-30 11:31 | Outpatient (REF) | payer BC, SELFPAY ==
--- NOTE | 2025-06-30 11:15 | PAPFT_PTH ---
PATIENT: Marly Viveros LOC: [facility] U#:[id number] AGE/SX: 34/F ROOM: RE06/30/[address]: Maxine Bañuelos NP : 1990 BED: DIS: 06/30/2025 SPEC #: [id number] RECD: 06/30/25 13:32 STATUS: YOGINeda RECeleste #: [id number] [place]: 06/30/25 11:[address]: Maxine Bañuelos NP DEPT: [facility] Cytology RECD BY: Janice Aparicio ENTERED: 06/30/25 13:33 SP TYPE: PAPFT OTHR DR: Luke Dutton Tissues: 1 - CX/ENDOCX FOR PAP SMEARS Procedures: PAP THIN PREP/[facility] Screening HPV DNA PROBE Comments: (HPV 16 & 18/45)
== END 2025-06-30 11:32 | disposition home or self-care (01) ==
LOC: LBN 11:31
PROVIDERS: Visit Provider Nurse Practitioner Women's Health
DX: Z12.4 Encounter for screening for malignant neoplasm of cervix (principal)
CPT/HCPCS: 88142; 87624

== ENCOUNTER 2025-07-05 01:23 | Outpatient (CLI) | payer BC, SELFPAY ==
[2025-07-05 08:30] LABS: Cholesterol 156 mg/dL (<200); HDL Cholesterol 64 mg/dL (>40)
== END 2025-07-05 01:24 | disposition home or self-care (01) ==
LOC: LBO 01:23
DX: Z83.3 Family history of diabetes mellitus (principal); E66.3 Overweight; Z15.89 Genetic susceptibility to other disease
CPT/HCPCS: 36415; 80061